=== PATIENT | female | born 1995 | race Caucasian/White ===

== ENCOUNTER 2022-09-04 05:00 | Inpatient (IN) | payer OTHER ==
[2022-09-04] MEDS ORDERED: Bupivacaine 0.25% HCL 30 ML VIAL ONE (13:15)
[2022-09-04 23:03] VITALS: BMI 31.3
[2022-09-05] MEDS ORDERED: Lidocaine 1% (PF) 30 ML VIAL SC PRN (00:30)
[2022-09-05] MEDS ORDERED: Diphenoxylate HCl/Atropine Tablet PO PRN ×2 (00:30)
[2022-09-05] MEDS ORDERED: hydrALAZINE 20 MG/ML VIAL SLOW IVP PRN ×2 (00:30→10:51)
[2022-09-05] MEDS ORDERED: HYDROcodone/Acetaminophen 5/325 mg Tablet PO PRN ×4 (00:30→10:51)
[2022-09-05] MEDS ORDERED: Promethazine HCl 25 MG/ML VIAL IM PRN ×2 (00:30→05:49)
[2022-09-05] MEDS ORDERED: Acetaminophen 500 MG TAB PO PRN (00:30)
[2022-09-05] MEDS ORDERED: Misoprostol 200 MCG TAB RC PRN (00:30)
[2022-09-05] MEDS ORDERED: NS w/ Oxytocin 30 units 500 ML IV SCH (00:30)
[2022-09-05] MEDS ORDERED: Carboprost 250 MCG/ML AMP IM PRN (00:30)
[2022-09-05] MEDS ORDERED: Butorphanol Tartrate 1 MG/ML VIAL SLOW IVP PRN (00:30)
[2022-09-05] MEDS ORDERED: Ondansetron PF 4 MG/2 ML Vial IVP PRN ×3 (00:30→10:51)
[2022-09-05] MEDS ORDERED: Lactated Ringer's 1,000 ML IV SCH (00:30)
[2022-09-05] MEDS ORDERED: Zolpidem Tartrate 5 MG TAB PO PRN (00:30)
[2022-09-05] MEDS ORDERED: Methylergonovine 0.2 MG/ML VIAL IM PRN (00:30)
[2022-09-05] MEDS ORDERED: Ibuprofen 800 MG TAB PO PRN (00:30)
[2022-09-05] MEDS ORDERED: NS w/ Oxytocin 30 units 500 ML IVPB SCH (00:30)
[2022-09-05] MEDS ORDERED: Misoprostol 100 MCG TAB ONE (00:34)
[2022-09-05 00:43] LABS: Hemoglobin 11.2 g/dL (12.0-15.5); Mean Corpuscular HGB CONC 32.5 g/dL (32.0-36.0); Mean Corpuscular Hemoglobin 27.3 pg (27.0-33.0); Mean Corpuscular Volume 83.9 fl (81.6-98.3); Mean Platelet Volume 9.9 fl (7.4-10.4); Platelet Count 222 10x3/uL (150-450); RBC Distribution Width 13.4 % (11.5-14.5); Red Blood Cell (RBC) Count 4.11 10x6/uL (3.90-5.03); White Blood Cell (WBC) Count 11.6 10x3/uL (3.5-10.5)
[2022-09-05 01:07] LABS: HBSAg Index 0.11 S/CO (0-0.99); Hep B Surf Ag Non-Reactive S/CO (NonReactive)
[2022-09-05 01:08] LABS: Syphilis Antibody Nonreactive (Nonreactive); Syphilis Antibody Index 0.05 S/CO (<1.00 Non-Reactive)
[2022-09-05] MEDS ORDERED: Misoprostol 100 MCG TAB VAG SCH (03:00)
[2022-09-05] MEDS ORDERED: Fentanyl 2 mcg/Bup 0.1% Cadd 100 ML ONE (04:55)
[2022-09-05] MEDS ORDERED: Moisturizing Cream (Eucerin) 113 GM JAR TOP PRN (05:49)
[2022-09-05] MEDS ORDERED: diphenhydrAMINE 50 MG/ML VIAL IVP PRN (05:49)
[2022-09-05] MEDS ORDERED: Acetaminophen 325 MG TAB PO PRN (05:49)
[2022-09-05] MEDS ORDERED: ePHEDrine Sulfate 50 MG/10 ML VIAL SLOW IVP PRN (05:49)
[2022-09-05] MEDS ORDERED: Lactated Ringer's 500 ML IV PRN (05:49)
[2022-09-05] MEDS ORDERED: Naloxone HCl 0.4 mg/ml Vial IVP PRN ×2 (05:49)
[2022-09-05] MEDS ORDERED: Fentanyl 2 mcg/Bupivacaine 0.1% Cassette 100 ML EPIDURAL SCH (06:00)
[2022-09-05] MEDS ORDERED: Communication Order-Pharmacy FS SCH (06:00)
[2022-09-05 07:46] LABS: SARS-CoV-2 NAA Rapid Test Not Detected (NotDetected)
[2022-09-05] MEDS ORDERED: Lidocaine 1% (PF) 30 ML VIAL ONE ×2 (08:10→08:16)
[2022-09-05] MEDS ORDERED: EPINEPHrine 1 MG/ML AMP ONE (08:52)
[2022-09-05] MEDS ORDERED: Benzocaine-Menthol 82.5 ML CAN TOP PRN (10:51)
[2022-09-05] MEDS ORDERED: Bisacodyl 10 MG SUPP PR PRN (10:51)
[2022-09-05] MEDS ORDERED: Lanolin Ointment 7 GM TUBE TOP PRN (10:51)
[2022-09-05] MEDS ORDERED: Milk Of Magnesia 30 ML UDCUP PO PRN (10:51)
[2022-09-05] MEDS ORDERED: Preparation H Ointment 28 GM TUBE PR PRN (10:51)
[2022-09-05] MEDS ORDERED: diphenhydrAMINE 25 MG CAP PO PRN (10:51)
[2022-09-05] MEDS ORDERED: Boostrix 0.5 ML (Tdap) VIAL (>/=7 yrs of age) IM ONE (10:51)
[2022-09-05] MEDS ORDERED: Prenatal Vitamin 1 TAB PO SCH (11:00)
[2022-09-05] MEDS ORDERED: Docusate 100 MG CAP PO SCH (11:00)
[2022-09-05] MEDS: Ibuprofen 800 MG TAB PO SCH ×2 (13:32→21:08)
[2022-09-05] MEDS: Ferrous Sulfate 325 MG TAB PO SCH (16:10)
[2022-09-05] MEDS: Docusate 100 MG CAP PO SCH (21:08)
[2022-09-06] MEDS: Ibuprofen 800 MG TAB PO SCH ×2 (05:11→14:45)
[2022-09-06 07:50] VITALS: BP 111/63; TEMP 98
[2022-09-06] MEDS: Docusate 100 MG CAP PO SCH (08:04)
[2022-09-06] MEDS ORDERED: Prenatal Vitamin 1 TAB PO SCH (09:00)
[2022-09-06] MEDS: Ferrous Sulfate 325 MG TAB PO SCH ×2 (09:03→18:15)
== END 2022-09-06 18:30 | disposition home or self-care (01) | DRG 807 ==
LOC: CSHLD 21:53 → CSHPP 09-05 11:15
PROVIDERS: ADMIT Student in an Organized Health Care Education/Training Program; ATTEND Student in an Organized Health Care Education/Training Program
PROC: 3E0P7VZ Introduction of Hormone into Female Reproductive, Via Natural or Artificial Opening (ICD-10-PCS; 2022-09-04)
PROC: 10E0XZZ Delivery of Products of Conception, External Approach (ICD-10-PCS; principal; 2022-09-05)
PROC: 0KQM0ZZ Repair Perineum Muscle, Open Approach (ICD-10-PCS; 2022-09-05)
DX: O48.0 Post-term pregnancy (principal); Z37.0 Single live birth; Z3A.40 40 weeks gestation of pregnancy; Z20.822 Contact with and (suspected) exposure to COVID-19; O70.1 Second degree perineal laceration during delivery; O69.81X0 Labor and delivery complicated by cord around neck, without compression, not applicable or unspecified
CPT/HCPCS: 36415; 51702; 85027; 86780; 86850; 86900; 86901; 87340; J0171; J2001; S0020; U0002